=== PATIENT | male | born 1970 | race Caucasian/White ===

== ENCOUNTER 2018-01-13 23:30 | Emergency (ER) | payer BC ==
--- NOTE | 2018-01-13 23:57 | EDM.PDOC ---
ED HPI GENERAL MEDICAL PROBLEM - General Chief Complaint: Chest Pain Stated Complaint: Chest discomfort Time Seen by Provider: 01/13/18 23:40 Source of Information: Reports: Patient, Family History Limitations: Reports: No Limitations - History of Present Illness INITIAL COMMENTS - FREE TEXT/NARRATIVE: Sudden episode of not feeling well that started around 10pm and lasted 60-90 minutes. 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 Patient had mild sensation of SOB and "didn't feel right". No chest pain. No other complaints. No history of previous similar episodes. No medication/supplement changes. Non-smoker. History of HTN and GERD. No significant family history of CAD/WA - Related Data Allergies Allergy/AdvReac Type Severity Reaction Status Date / Time codeine Allergy Vomiting Verified 01/13/18 23:37 Home Meds: Home Meds Omeprazole [priLOSEC OTC] 20 mg PO DAILY #30 tab.sr 09/27/13 [Rx] Lisinopril 40 mg PO DAILY 01/13/18 [History] Nebivolol HCl [Bystolic] 10 mg PO DAILY 01/13/18 [History] atorvaSTATin [Lipitor] 40 mg PO DAILY 01/13/18 [History] Past Medical History Cardiovascular History: Reports: Hypertension Gastrointestinal History: Reports: GERD Musculoskeletal History: Reports: Neck Pain, Chronic Social & Family History - Tobacco Use Smoking Status *Q: Never Smoker Second Hand Smoke Exposure: Yes - Caffeine Use Caffeine Use: Reports: Soda Other Caffeine Use: Occasional 2-3/week - Alcohol Use Days Per Week of Alcohol Use: 7 (2 beers per day) Number of Drinks Per Day: 2 Total Drinks Per Week: 14 - Recreational Drug Use Recreational Drug Use: No ED ROS GENERAL - Review of Systems Review Of Systems: See Below Constitutional: Reports: No Symptoms HEENT: Reports: No Symptoms Respiratory: Reports: Shortness of Breath. Denies: Wheezing, Pleuritic Chest Pain, Cough, Sputum, Hemoptysis Cardiovascular: Reports: Palpitations. Denies: Chest Pain, Lightheadedness, Syncope GI/Abdominal: Reports: No Symptoms : Reports: No Symptoms Musculoskeletal: Reports: No Symptoms Skin: Reports: No Symptoms Neurological: Reports: No Symptoms Psychiatric: Reports: No Symptoms ED EXAM, GENERAL - Physical Exam Exam: See Below Exam Limited By: No Limitations General Appearance: Alert, WD/WN, No Apparent Distress Eye Exam: Bilateral Eye: EOMI, PERRL Ears: Normal External Exam Nose: Normal Inspection Throat/Mouth: Normal Inspection, Normal Voice, No Airway Compromise Head: Atraumatic, Normocephalic Neck: Normal Inspection, Supple, Non-Tender, Full Range of Motion. No: Lymphadenopathy (L), Lymphadenopathy (R) Respiratory/Chest: No Respiratory Distress, Lungs Clear, Normal Breath Sounds, No Accessory Muscle Use Cardiovascular: Normal Peripheral Pulses, Regular Rate, Rhythm, No Edema, No JVD , No Murmur Peripheral Pulses: 2+: Radial (L), Radial (R), Dorsalis Pedis (L), Dorsalis Pedis (R) GI/Abdominal: Normal Bowel Sounds, Non-Tender, No Distention (Male) Exam: Deferred Rectal (Males) Exam: Deferred Back Exam: Normal Inspection Extremities: Normal Inspection, Normal Range of Motion, Non-Tender, No Pedal Edema, Normal Capillary Refill Neurological: Alert, Oriented, Normal Cognition, Normal Gait, No Motor/Sensory Deficits Psychiatric: Normal Affect, Normal Mood Skin Exam: Warm, Dry, Intact, Normal Color EKG INTERPRETATION EKG Date: 01/13/18 Time: 23:26 Rhythm: Other (Sinus Bradycardia) Rate (Beats/Min): 57 Hagaman: Normal P-Wave: Present QRS: Other (QRS morphology suggests LVH due to increased voltage lateral leads.) ST-T: Normal QT: Normal Comparison: NA - No Prior EKG Course - Orders/Labs/Meds Orders: Active Orders 24 hr Category Date Time Status EKG Documentation Completion [RC] ASDIRECTED Care 01/13/18 23:41 Active Chest 2V [CR] Stat Exams 01/13/18 23:42 Taken Labs: Laboratory Tests 01/13/18 01/13/18 01/13/18 Range/Units 23:50 23:50 23:50 WBC 6.1 (4.0-10.2) K/uL RBC 4.73 (4.33-5.41) M/uL Hgb 14.3 (13.1-16.8) g/dL Hct 41.4 (39.0-49.0) % MCV 87.5 (84.0-98.0) fL MCH 30.2 (28.2-33.3) pg MCHC 34.5 (31.7-36.0) g/dL RDW 13.2 (11.2-14.1) % Plt Count 183 (150-350) K/uL Neut % (Auto) 60.7 (45.0-80.0) % Lymph % (Auto) 27.5 (10.0-50.0) % Holt % (Auto) 7.4 (2.0-14.0) % Eos % (Auto) 4.1 (0.0-5.0) % Baso % (Auto) 0.3 (0.0-2.0) % Neut # (Auto) 3.72 (1.40-7.00) K/uL Lymph # (Auto) 1.68 (0.50-3.50) K/uL Holt # (Auto) 0.45 (0.00-1.00) K/uL Eos # (Auto) 0.25 (0.00-0.50) K/uL Baso # (Auto) 0.02 (0.00-0.20) K/uL D-Dimer, Quantitative < 100 (0-400) ng/mL Sodium 144 (136-145) mmol/L Potassium 4.0 (3.5-5.1) mmol/L Chloride 107 (98-107) mmol/L Carbon Dioxide 28.6 (21.0-32.0) mmol/L BUN 29 H (7-18) mg/dL Creatinine 1.12 (0.51-1.17) mg/dL Est Cr Clr Drug Dosing 90.16 mL/min Estimated GFR (MDRD) > 60 mL/min Glucose 117 H (74-106) mg/dL Calcium 9.2 (8.5-10.1) mg/dL Total Bilirubin 0.6 (0.2-1.0) mg/dL AST 19 (15-37) U/L ALT 33 (12-78) U/L Alkaline Phosphatase 88 (46-116) IU/L Creatine Kinase 176 (26-308) U/L Creatine Kinase Index 1.0 (0.0-2.5) % CK-MB (CK-2) 1.80 (0.00-3.60) ng/mL Troponin I 0.000 (0.000-0.056) ng/mL Total Protein 7.5 (6.4-8.2) g/dL Albumin 4.1 (3.4-5.0) g/dL - Radiology Interpretation Free Text/Narrative:: No acute infiltrates noted on chest film. Cardiomegaly noted. - Re-Assessments/Exams Free Text/Narrative Re-Assessment/Exam: 01/14/18 00:25 CBC/Chem/Trop/CKMB/DDimer overall unremarkable. Patient continues to be asymptomatic. Plan at this time is to let him return home as he did not wish to stay on observation/telemetry overnight with repeat labs. Instead he will return tomorrow around 11-12am for repeat Troponin/CKMB. Precautions reviewed prior to discharge. He is to return to the ER if arrhythmia returns/symptomatic tachycardia is noted. Departure - Departure Time of Disposition: 00:19 Disposition: Home, Self-Care 01 Condition: Good Clinical Impression: Irregular heart rhythm Referrals: Martinez Henry PA [Primary Care Provider] - Forms: ED Department Discharge Additional Instructions: Watch for changes, follow up as needed. Return tomorrow morning for second lab draw. - My Orders Last 24 Hours: My Active Orders 01/13/18 23:41 EKG Documentation Completion [RC] ASDIRECTED 01/13/18 23:42 Chest 2V [CR] Stat - Assessment/Plan Last 24 Hours: My Active Orders 01/13/18 23:41 EKG Documentation Completion [RC] ASDIRECTED 01/13/18 23:42 Chest 2V [CR] Stat
[2018-01-14 00:17] LABS: CHLORIDE,CL 107 mmol/L (98-107); SODIUM,NA 144 mmol/L (136-145)
== END 2018-01-14 00:30 | disposition home or self-care (01) ==
LOC: LL.ED 23:30
DX: I49.9 Cardiac arrhythmia, unspecified (principal); I10 Essential (primary) hypertension; Z88.5 Allergy status to narcotic agent; Z79.899 Other long term (current) drug therapy
CPT/HCPCS: 36415; 71046; 80053; 82550; 82553; 84484; 85025; 85379; 93005; 99285